=== PATIENT | male | born 1975 | race Two or more races ===

== ENCOUNTER 2024-08-04 20:10 | Emergency (ER) | payer OTHER, SELFPAY ==
[2024-08-04] VITALS (8 sets, daily range): BP systolic 153–165; BP diastolic 85–98; PULSE 77–88; TEMP 36.8; O2SAT 90–96; BMI 35.6
--- NOTE | 2024-08-04 20:32 | ECG_ITS ---
[facility] Test Date: 2024-08-04 Pat Name: BRITTANY LAYTON Department: Room: - Gender: Male [employer]: : 1975 Requested By: [id number] Order Number: [id number] Reading MD: LENNOX CHIN M.D. Measurements Intervals [place] Rate: 75 P: 37 NE: 164 QRS: 37 QRSD: 106 T: 90 QT: 368 QTc: 397 Interpretive Statements 1100 Sinus rhythm 4068 Nonspecific Twave abnormality 8102 Low QRS voltage in chest leads 9130 borderline ECG No previous ECG available for comparison Electronically Signed On 08-05-2024 8:24:25 EDT by LENNOX CHIN M.D.
--- NOTE | 2024-08-04 20:37 | ED.GENADUL1 ---
HPI HPI - General Adult General Chief complaint: Recheck/Abnormal Lab/Rx Stated complaint: Hypertension Time Seen by Provider: 08/04/24 20:24 Source: patient Mode of arrival: walk-in Limitations: no limitations History of Present Illness HPI narrative: Patient is a 49-year-old male who presents to the emergency department for elevated blood pressure that he noted at home. He states he checks his blood pressure daily. He typically takes his blood pressure medication around 8 or 9 PM. He states that his blood pressure was elevated at 7 PM at 200/100 so he took his blood pressure medication. He has no headache, paresthesia, dizziness, chest pain or shortness of breath. No visual changes. On arrival to the emergency department, blood pressure is 160/80. Related Data Home Medications ?Medication ?Instructions ?Recorded ?Confirmed amlodipine 10 mg tablet 10 mg PO DAILY 08/04/24 08/04/24 telmisartan 40 mg tablet 40 mg PO DAILY 08/04/24 08/04/24 Allergies Allergy/AdvReac Type Severity Reaction Status Date / Time No Known Drug Allergies Allergy Verified 08/04/24 20:28 Opioid HPI Opioid Management Most Recent Opioid Data: No Data to Display Review of Systems ROS Constitutional Denies: fever or chills Ears, nose, mouth, and throat Denies: throat pain or nasal congestion Cardiovascular Denies: chest pain Respiratory Denies: shortness of breath or cough Gastrointestinal Denies: nausea or vomiting Integumentary/Breast Denies: rash Neurological Denies: headache, numbness in extremities, weakness in extremities or dizziness Hematologic/Lymphatic Denies: easy bruising or easy bleeding PFSH PFSH Social History Little interest or pleasure in doing things: not at all Feeling down, depressed, or hopeless: not at all Exam Narrative Exam Narrative: Gen.: Awake, alert, in no distress Head: Normocephalic, atraumatic ENT: Moist mucous membranes Respiratory: No respiratory distress, lungs clear bilaterally Cardio: Regular rate and rhythm Gastrointestinal: Abdomen is soft, nondistended and nontender to palpation Extremities: Moves extremities equally, no pedal edema Psych: Normal mood and affect Neuro: No focal neuro deficit Skin: Warm, dry, intact Constitutional Vital Signs, click to edit/add: Last Vital Signs Temp 98.2 F 08/04/24 20:23 Pulse 80 08/04/24 20:50 Resp 27 H 08/04/24 20:50 BP 153/97 H 08/04/24 20:45 Pulse Ox 92 L 08/04/24 20:50 O2 Del Method Room Air 08/04/24 20:23 Course Vital Signs Vital signs: Vital Signs Temperature 98.2 F 08/04/24 20:23 Pulse Rate 88 08/04/24 20:23 Respiratory Rate 16 08/04/24 20:23 Blood Pressure 165/85 H 08/04/24 20:23 Pulse Oximetry 96 08/04/24 20:23 Oxygen Delivery Method Room Air 08/04/24 20:23 Temperature 98.2 F 08/04/24 20:23 Pulse Rate 80 08/04/24 20:50 Respiratory Rate 27 H 08/04/24 20:50 Blood Pressure 153/97 H 08/04/24 20:45 Pulse Oximetry 92 L 08/04/24 20:50 Oxygen Delivery Method Room Air 08/04/24 20:23 Medical Decision Making MDM Narrative Medical decision making narrative: Blood pressure improved on recheck. Patient in no distress, no focal neurodeficits and no other focal medical complaints. He was given education and reassurance. Follow-up with PCP and continue regular blood pressure medications as prescribed. Return to the ER if symptoms change or worsen SHARED APC VISIT, PHYSICIAN ATTESTATION: [id number] I performed a substantive part of the MDM during the patient?s E/M visit. I personally evaluated and examined the patient. I personally made or approved the documented management plan and acknowledge its risk of complications. Medical Records Medical records reviewed: Yes I reviewed the patient's medical records Lab Data Lab results reviewed: Yes I reviewed the patient's lab results Labs: Lab Results 08/04/24 Range/Units 20:40 WBC 7.0 (4.0-11.0) 10^3/uL RBC 5.16 (4.70-6.10) 10^6/uL Hgb 15.3 (14.0-18.0) g/dL Hct 44.6 (42.0-54.0) % MCV 86.4 (80.0-94.0) fL MCH 29.7 (25.9-34.0) pg MCHC 34.3 (29.9-35.2) g/dL RDW 13.3 (11.0-15.0) % Plt Count 259 (150-450) 10^3/uL MPV 9.3 L (9.5-13.5) fL Neut % (Auto) 59.4 (43.0-75.0) % Lymph % (Auto) 26.1 (20.5-60.0) % Mchenry % (Auto) 11.2 (1.7-12.0) % Eos % (Auto) 2.3 (0.9-7.0) % Baso % (Auto) 0.7 (0.2-2.0) % Neut # (Auto) 4.1 (1.4-6.5) 10^3/uL Lymph # (Auto) 1.8 (1.2-3.8) 10^3/uL Mchenry # (Auto) 0.8 (0.3-0.8) 10^3/uL Eos # (Auto) 0.2 (0.0-0.7) 10^3/uL Baso # (Auto) 0.1 (0.0-0.1) 10^3/uL Abs Immat Gran (auto) 0.02 (0.00-0.03) 10^3/uL Imm/Tot Granulo (auto) 0.3 (0.0-0.5) % Sodium 139 (136-145) mmol/L Potassium 3.4 L (3.5-5.1) mmol/L Chloride 104 (98-107) mmol/L Carbon Dioxide 26.9 (21.0-32.0) mmol/L Anion Gap 11.5 BUN 18.0 (7.0-18.0) mg/dL Creatinine 1.21 (0.70-1.30) mg/dL Est GFR ( Amer) >60 (>=60 mL/min/1.73m^2) Est GFR (Non-Af Amer) >60 (>=60 mL/min/1.73m^2) BUN/Creatinine Ratio 14.9 Glucose 154 H (74-106) mg/dL Calcium 8.6 (8.5-10.1) mg/dL Troponin I High Sens 33.0 (4.0-76.1) pg/mL ECG Data Attestation: I personally reviewed and interpreted this ECG as follows: (Normal sinus rhythm at a rate of 75, no acute ST elevation or ectopy. EKG reviewed by attending physician) Discharge Plan Discharge Chief Complaint: Recheck/Abnormal Lab/Rx Clinical Impression: Hypertension Patient Disposition: Home, Self-Care Time of Disposition Decision: 21:11 Condition: Good Prescriptions / Home Meds: No Action amlodipine 10 mg tablet 10 mg PO DAILY telmisartan 40 mg tablet 40 mg PO DAILY Print Language: Zambian Instructions: Hypertension (ED) Referrals: Lloyd Gandhi MD [Primary Care Provider] - 1 week
[2024-08-04 20:45] LABS: Basophils Absolute Auto 0.1 10^3/uL (0.0-0.1); Basophils Percent Auto 0.7 % (0.2-2.0); Eosinophils Absolute Auto 0.2 10^3/uL (0.0-0.7); Eosinophils Percent Auto 2.3 % (0.9-7.0); Hematocrit 44.6 % (42.0-54.0); Hemoglobin 15.3 g/dL (14.0-18.0); Immature Granulocytes Abs Auto 0.02 10^3/uL (0.00-0.03); Immature Granulocytes Pct Auto 0.3 % (0.0-0.5); Lymphocytes Absolute Auto 1.8 10^3/uL (1.2-3.8); Lymphocytes Percent Auto 26.1 % (20.5-60.0); Mean Corpuscular HGB Conc 34.3 g/dL (29.9-35.2); Mean Corpuscular Hemoglobin 29.7 pg (25.9-34.0); Mean Corpuscular Volume 86.4 fL (80.0-94.0); Mean Platelet Volume 9.3 fL (9.5-13.5); Monocytes Absolute Auto 0.8 10^3/uL (0.3-0.8); Monocytes Percent Auto 11.2 % (1.7-12.0); Neutrophils Absolute Auto 4.1 10^3/uL (1.4-6.5); Neutrophils Percent Auto 59.4 % (43.0-75.0); Platelet Count 259 10^3/uL (150-450); Red Blood Count 5.16 10^6/uL (4.70-6.10); Red Cell Distribution Width 13.3 % (11.0-15.0)
[2024-08-04 21:03] LABS: Anion Gap 11.5; BUN Creatinine Ratio 14.9; Calcium 8.6 mg/dL (8.5-10.1); Carbon Dioxide 26.9 mmol/L (21.0-32.0); Chloride 104 mmol/L (98-107); Estimated GFR (African America >60 (>=60 mL/min/1.73m^2); Estimated GFR (Non-African Ame >60 (>=60 mL/min/1.73m^2); Glucose 154 mg/dL (74-106); Potassium 3.4 mmol/L (3.5-5.1); Sodium 139 mmol/L (136-145)
== END 2024-08-04 21:19 | disposition home or self-care (01) ==
PROVIDERS: Physician Assistant; Emergency Provider Emergency Medicine; Family Provider Family Medicine; PCP Family Medicine
DX: I10 Essential (primary) hypertension (principal); Z79.899 Other long term (current) drug therapy
CPT/HCPCS: 36415; 80048; 84484; 85025; 93005; 99284